=== PATIENT | male | born 1940 | race Caucasian/White ===

== ENCOUNTER → 2017-01-23 | Outpatient (CLI) | payer MEDICARE, BC ==
[~2017-01-23] MED LIST: ANDRODERM5 MG/24 HR TD; FLOMAX 0.40.4 MG/CAP PO; PAXIL20 MG PO; PRILOSEC 20MG20 MG PO; TALWIN NX PO
== END ==
LOC: MHCPAIN 13:39
DX: G89.29 Other chronic pain (principal); M47.817 Spondylosis without myelopathy or radiculopathy, lumbosacral region; M53.3 Sacrococcygeal disorders, not elsewhere classified; M41.9 Scoliosis, unspecified
CPT/HCPCS: G0463

== ENCOUNTER → 2017-02-08 | Outpatient (CLI) | payer MEDICARE, BC | LOC: MHCPAIN 13:38 | DX: M47.817 Spondylosis without myelopathy or radiculopathy, lumbosacral region (principal); M41.86 Other forms of scoliosis, lumbar region; M48.061 Spinal stenosis, lumbar region without neurogenic claudication | CPT/HCPCS: J1100; Q9967 ==

== ENCOUNTER → 2017-02-21 | Outpatient (CLI) | payer MEDICARE, BC | LOC: MHCPAIN 14:50 | DX: G89.29 Other chronic pain (principal); M47.27 Other spondylosis with radiculopathy, lumbosacral region; M41.9 Scoliosis, unspecified | CPT/HCPCS: G0463 ==

== ENCOUNTER → 2017-03-21 | Outpatient (CLI) | payer MEDICARE, BC | LOC: MHCPAIN 13:59 | DX: G89.29 Other chronic pain (principal); M47.27 Other spondylosis with radiculopathy, lumbosacral region; M53.3 Sacrococcygeal disorders, not elsewhere classified; M41.9 Scoliosis, unspecified; M48.061 Spinal stenosis, lumbar region without neurogenic claudication | CPT/HCPCS: G0463 ==

== ENCOUNTER → 2017-06-26 | Outpatient (CLI) | payer MEDICARE, BC | LOC: MHCPAIN 13:59 | DX: G89.29 Other chronic pain (principal); M47.817 Spondylosis without myelopathy or radiculopathy, lumbosacral region; M54.16 Radiculopathy, lumbar region; M53.3 Sacrococcygeal disorders, not elsewhere classified; M48.061 Spinal stenosis, lumbar region without neurogenic claudication; M41.9 Scoliosis, unspecified | CPT/HCPCS: G0463 ==

== ENCOUNTER → 2017-09-25 | Outpatient (CLI) | payer MEDICARE, BC | LOC: MHCPAIN 14:11 | DX: G89.29 Other chronic pain (principal); M47.817 Spondylosis without myelopathy or radiculopathy, lumbosacral region; M54.16 Radiculopathy, lumbar region; M53.3 Sacrococcygeal disorders, not elsewhere classified; M41.9 Scoliosis, unspecified; M48.061 Spinal stenosis, lumbar region without neurogenic claudication | CPT/HCPCS: G0463 ==

== ENCOUNTER → 2017-12-25 | Outpatient (CLI) | payer MEDICARE, BC | LOC: MHCPAIN 15:36 | DX: G89.29 Other chronic pain (principal); M47.817 Spondylosis without myelopathy or radiculopathy, lumbosacral region; M54.16 Radiculopathy, lumbar region; M53.3 Sacrococcygeal disorders, not elsewhere classified; M41.9 Scoliosis, unspecified; M48.061 Spinal stenosis, lumbar region without neurogenic claudication | CPT/HCPCS: G0463 ==

== ENCOUNTER → 2018-03-19 | Outpatient (CLI) | payer MEDICARE, BC | LOC: MHCPAIN 15:24 | DX: G89.29 Other chronic pain (principal); M47.817 Spondylosis without myelopathy or radiculopathy, lumbosacral region; M54.16 Radiculopathy, lumbar region; M53.3 Sacrococcygeal disorders, not elsewhere classified; M41.9 Scoliosis, unspecified | CPT/HCPCS: G0463 ==

== ENCOUNTER → 2018-07-16 | Outpatient (CLI) | payer MEDICARE, BC | LOC: MHCPAIN 13:56 | DX: G89.29 Other chronic pain (principal); M47.817 Spondylosis without myelopathy or radiculopathy, lumbosacral region; M54.16 Radiculopathy, lumbar region; M53.3 Sacrococcygeal disorders, not elsewhere classified; M41.9 Scoliosis, unspecified | CPT/HCPCS: G0463 ==

== ENCOUNTER → 2018-10-15 | Outpatient (CLI) | payer MEDICARE, BC | LOC: MHCPAIN 13:54 | DX: G89.29 Other chronic pain (principal); M47.817 Spondylosis without myelopathy or radiculopathy, lumbosacral region; M54.16 Radiculopathy, lumbar region; M53.3 Sacrococcygeal disorders, not elsewhere classified; M47.814 Spondylosis without myelopathy or radiculopathy, thoracic region; M41.9 Scoliosis, unspecified | CPT/HCPCS: G0463 ==

== ENCOUNTER → 2018-11-12 | Outpatient (CLI) | payer MEDICARE, BC | LOC: MHCPAIN 15:16 | DX: G89.29 Other chronic pain (principal); M47.817 Spondylosis without myelopathy or radiculopathy, lumbosacral region; M54.16 Radiculopathy, lumbar region; M53.3 Sacrococcygeal disorders, not elsewhere classified; M96.1 Postlaminectomy syndrome, not elsewhere classified | CPT/HCPCS: G0463 ==

== ENCOUNTER → 2018-12-18 | Outpatient (CLI) | payer MEDICARE, BC | LOC: MHCPAIN 14:03 | DX: G89.29 Other chronic pain (principal); M47.817 Spondylosis without myelopathy or radiculopathy, lumbosacral region; M53.3 Sacrococcygeal disorders, not elsewhere classified; M47.814 Spondylosis without myelopathy or radiculopathy, thoracic region; M48.061 Spinal stenosis, lumbar region without neurogenic claudication; M41.9 Scoliosis, unspecified | CPT/HCPCS: G0463 ==

== ENCOUNTER → 2019-03-18 | Outpatient (CLI) | payer MEDICARE, BC | LOC: MHCPAIN 14:02 | DX: G89.29 Other chronic pain (principal); M47.817 Spondylosis without myelopathy or radiculopathy, lumbosacral region; M53.3 Sacrococcygeal disorders, not elsewhere classified; M47.814 Spondylosis without myelopathy or radiculopathy, thoracic region; M48.061 Spinal stenosis, lumbar region without neurogenic claudication; M41.9 Scoliosis, unspecified | CPT/HCPCS: G0463 ==

== ENCOUNTER → 2019-07-09 | Outpatient (CLI) | payer MEDICARE, BC | LOC: MHCPAIN 15:00 | DX: M47.817 Spondylosis without myelopathy or radiculopathy, lumbosacral region (principal); M47.814 Spondylosis without myelopathy or radiculopathy, thoracic region; M48.061 Spinal stenosis, lumbar region without neurogenic claudication; M41.26 Other idiopathic scoliosis, lumbar region | CPT/HCPCS: G0463 ==

== ENCOUNTER → 2019-10-07 | Outpatient (CLI) | payer MEDICARE, BC | LOC: MHCPAIN 15:00 | DX: M53.3 Sacrococcygeal disorders, not elsewhere classified (principal); M47.817 Spondylosis without myelopathy or radiculopathy, lumbosacral region; M48.061 Spinal stenosis, lumbar region without neurogenic claudication; M54.16 Radiculopathy, lumbar region; G89.29 Other chronic pain | CPT/HCPCS: G0463 ==

== ENCOUNTER → 2020-01-06 | Outpatient (CLI) | payer MEDICARE, BC | LOC: MHCPAIN 15:00 | DX: M47.817 Spondylosis without myelopathy or radiculopathy, lumbosacral region (principal); M47.814 Spondylosis without myelopathy or radiculopathy, thoracic region; M54.5 Low back pain; M53.3 Sacrococcygeal disorders, not elsewhere classified; G89.29 Other chronic pain | CPT/HCPCS: G0463 ==

== ENCOUNTER → 2020-03-31 | Outpatient (CLI) | payer MEDICARE, BC | LOC: MHCPAIN 15:06 | DX: M47.817 Spondylosis without myelopathy or radiculopathy, lumbosacral region (principal); M53.3 Sacrococcygeal disorders, not elsewhere classified; M41.86 Other forms of scoliosis, lumbar region; G89.29 Other chronic pain | CPT/HCPCS: G0463 ==

== ENCOUNTER → 2020-05-12 | Outpatient (CLI) | payer MEDICARE, BC ==
[2020-05-12 17:43] LABS: BASO # 0.1 (0.0-0.2); BASO % 0.4 % (0.0-2.0); EOS # 0.6 (0.0-0.7); EOS % 4.2 % (0-4.0); GRAN # 13.1 (1.4-6.5); GRAN % 85.8 % (42.2-75.2); HEMOGLOBIN 10.1 g/dl (13.5-18.0); LYMPH # 0.7 (1.2-3.4); LYMPH % 4.3 % (20.0-51.0); MEAN CELL VOLUME 85 fl (80.0-100.0); MEAN CORPUSCULAR HEMOGLOBIN 26 pg (27.0-31.0); MEAN CORPUSCULAR HGB CONC 31 g/dl (33.0-37.0); MEAN PLATELET VOLUME 9.9 fl (7.4-10.4); MONO # 0.7 (0.1-0.6); MONO % 4.8 % (1.7-9.3); PLATELET COUNT 435 K/mm3 (130-400); RED BLOOD COUNT 3.83 M/mm3 (4.20-5.60); REDCELL DISTRIBUTION WIDTH-CV 16.9 % (11.5-14.5)
[2020-05-12 17:46] LABS: HEMATOCRIT 32.6 % (42.0-52.0)
== END ==
LOC: ZCOL.LAB 17:29
PROVIDERS: Family Medicine
DX: D64.9 Anemia, unspecified (principal)

== ENCOUNTER 2020-05-18 06:06 | Day surgery (SDC) | payer MEDICARE, BC ==
[2020-05-18] VITALS (9 sets, daily range): BP systolic 171–193; BP diastolic 77–96; PULSE 86–106; TEMP 97.6–98.3
[~2020-05-18] VITALS: Ht 175.3 cm; Wt 85.0 kg
--- NOTE | 2020-05-18 07:15 | NUR ---
Pt belongings include his watch, wallet, and prescription medicines as his "med list," all kept in his own belongings bag.
[2020-05-18] MEDS ORDERED: LIORESAL 1010 MG/TAB PO (07:38)
[2020-05-18] MEDS ORDERED: NALOXONE PO (07:43)
[2020-05-18] MEDS ORDERED: PENTAZOCINE PO (07:43)
[2020-05-18] MEDS ORDERED: PROTONIX 40MG T40 MG PO (07:44)
[2020-05-18] MEDS ORDERED: PROTONIX I40 MG/VIAL IV (07:44)
[2020-05-18] MEDS ORDERED: FLOMAX 0.40.4 MG/CAP PO (07:45)
[2020-05-18] MEDS ORDERED: CARAFATE 1GM1 G (07:46)
[2020-05-18] MEDS ORDERED: ZESTRIL 10MG10 MG PO (07:46)
[2020-05-18] MEDS ORDERED: CARAFATE 1GM1 G PO (07:47)
[2020-05-18] MEDS ORDERED: ALEVE 220MG220 MG PO (07:49)
--- NOTE | 2020-05-18 08:30 | NUR ---
Pt returns from procedure via cart and remains on cart per pt request. Monitors on and alarms set. Call light within reach. Report received from ALIDA Lal. Pt desires to rest before getting anything to eat or drink. Pt denies pain or nausea. Pt allowed to rest.
--- NOTE | 2020-05-18 08:50 | NUR ---
Pt continues to rest well. No complications noted.
--- NOTE | 2020-05-18 09:30 | NUR ---
Pt continues to rest.
--- NOTE | 2020-05-18 09:45 | NUR ---
Pt continues to rest without complications.
--- NOTE | 2020-05-18 10:30 | NUR ---
Pt wakes feeling rested and desiring water. Pt positioned to sit and drink while in stretcher. Pt sips water and desires to recline in stretcher again.
--- NOTE | 2020-05-18 11:00 | NUR ---
Pt states he should have taken pain medicine and muscle relaxant. Call to Dr. Beach to ask about pt receiving these meds. Dr. Beach approves a one time order for both. Pharmacy called to assist.
--- NOTE | 2020-05-18 11:30 | NUR ---
Pt asked about follow-up information on Suicide Risk questions. Pt declines this information stating that Dr. Gibbs (pt's PCP) is very aware of this and working through it with him.
--- NOTE | 2020-05-18 11:42 | NUR ---
Discharge instructions given to pt. All questions answered to his satisfaction. Handed to him are discharge instructions, a thank you card, diagnosis information, and a procedural photo sheet, as well as a follow-up appt card.
--- NOTE | 2020-05-18 11:50 | NUR ---
Pt assisted in getting dressed and taxi called.
--- NOTE | 2020-05-18 11:50 | NUR ---
Pt belongings bag still has pt's watch, wallet, and prescription medicines. Pt acknowledges this to this RN.
--- NOTE | 2020-05-18 11:52 | NUR ---
Pt transferred to Pt Entrance via wheelchair to await taxi with this RN assisting.
--- NOTE | 2020-05-18 12:03 | NUR ---
Taxi arrives, and pt assisted into taxi with this RN assisting. team truck driver agrees that he will help pt get to his house when they arrive there.
== END 2020-05-18 11:52 | disposition home or self-care (01) ==
LOC: SDCO 06:06
DX: K31.84 Gastroparesis (principal); K25.7 Chronic gastric ulcer without hemorrhage or perforation; K31.1 Adult hypertrophic pyloric stenosis; D50.0 Iron deficiency anemia secondary to blood loss (chronic); K92.1 Melena; G47.33 Obstructive sleep apnea (adult) (pediatric); I10 Essential (primary) hypertension; M19.90 Unspecified osteoarthritis, unspecified site; G89.29 Other chronic pain; M54.9 Dorsalgia, unspecified; N40.0 Benign prostatic hyperplasia without lower urinary tract symptoms; Z20.822 Contact with and (suspected) exposure to COVID-19
CPT/HCPCS: C1726; J2704; J7120

== ENCOUNTER → 2020-07-07 | Outpatient (CLI) | payer MEDICARE, BC ==
[~2020-07-07] MED LIST changes: +ALEVE 220MG220 MG PO; +CARAFATE 1GM1 G; +CARAFATE 1GM1 G PO; +IMODIUM A-D2 MG PO; +LIORESAL 1010 MG/TAB PO; +NALOXONE PO; +PENTAZOCINE PO; +PROTONIX 40MG T40 MG PO; +PROTONIX I40 MG/VIAL IV; +RESTORIL 1515 MG/CAP PO; +TUMS500 MG PO; +TYLENOL 325MG325 MG PO; +ZESTRIL 10MG10 MG PO; +ZYRTEC 10MG10 MG PO
== END ==
LOC: MHCPAIN 14:16
DX: M47.817 Spondylosis without myelopathy or radiculopathy, lumbosacral region (principal); M41.86 Other forms of scoliosis, lumbar region; M54.5 Low back pain; M53.3 Sacrococcygeal disorders, not elsewhere classified; G89.29 Other chronic pain
CPT/HCPCS: G0463

== ENCOUNTER → 2020-07-27 | Outpatient (CLI) | payer MEDICARE, BC ==
[2020-07-27 18:11] LABS: BASO % 0.3 % (0.0-2.0); EOS # 0.2 (0.0-0.7); EOS % 1.4 % (0-4.0); GRAN # 10.1 (1.4-6.5); HEMOGLOBIN 12.5 g/dl (13.5-18.0); LYMPH # 0.8 (1.2-3.4); LYMPH % 6.6 % (20.0-51.0); MEAN CELL VOLUME 88 fl (80.0-100.0); MEAN CORPUSCULAR HEMOGLOBIN 27 pg (27.0-31.0); MEAN CORPUSCULAR HGB CONC 31 g/dl (33.0-37.0); MEAN PLATELET VOLUME 10.2 fl (7.4-10.4); MONO # 0.6 (0.1-0.6); MONO % 5.4 % (1.7-9.3); PLATELET COUNT 371 K/mm3 (130-400); RED BLOOD COUNT 4.57 M/mm3 (4.20-5.60); REDCELL DISTRIBUTION WIDTH-CV 18.9 % (11.5-14.5)
[2020-07-27 18:20] LABS: ALBUMIN 3.9 gm/dL (3.5-5.0); BILIRUBIN,TOTAL 0.1 mg/dL (0.0-1.0); CALCIUM 10.8 mg/dL (8.4-10.2); CREATININE, serum 1.36 (0.66-1.25); POTASSIUM 4.9 mmol/L (3.4-5.0)
== END ==
LOC: ZCOL.LAB 18:05
PROVIDERS: Nurse Practitioner Family
DX: D62 Acute posthemorrhagic anemia (principal); R63.4 Abnormal weight loss

== ENCOUNTER → 2020-07-27 | Outpatient (CLI) | payer MEDICARE, BC | LOC: ZCOL.LAB 18:08 | DX: D62 Acute posthemorrhagic anemia (principal); R63.4 Abnormal weight loss ==

== ENCOUNTER → 2020-08-04 | Outpatient (CLI) | payer MEDICARE, BC | LOC: COL.RAD 10:09 | DX: E83.52 Hypercalcemia (principal); K40.90 Unilateral inguinal hernia, without obstruction or gangrene, not specified as recurrent; K31.89 Other diseases of stomach and duodenum; K52.832 Lymphocytic colitis | CPT/HCPCS: Q9967 ==

== ENCOUNTER → 2020-08-20 | Outpatient (CLI) | payer MEDICARE, BC | LOC: COL.RAD 12:52 | DX: K31.1 Adult hypertrophic pyloric stenosis (principal) ==

== ENCOUNTER → 2020-10-05 | Outpatient (CLI) | payer MEDICARE, BC | LOC: MHCPAIN 15:01 | DX: M47.816 Spondylosis without myelopathy or radiculopathy, lumbar region (principal); M54.5 Low back pain; M41.86 Other forms of scoliosis, lumbar region; M53.3 Sacrococcygeal disorders, not elsewhere classified | CPT/HCPCS: G0463 ==

== ENCOUNTER 2020-10-18 09:52 | Emergency (ER) | payer MEDICARE, BC ==
[~2020-10-18] VITALS: Ht 172.7 cm; Wt 81.8 kg
[~2020-10-18 09:52] MED LIST changes: -IMODIUM A-D2 MG PO; -RESTORIL 1515 MG/CAP PO; -TUMS500 MG PO; -TYLENOL 325MG325 MG PO; -ZYRTEC 10MG10 MG PO
[2020-10-18 10:43] LABS: BASO % 0.3 % (0.0-2.0); EOS # 0.1 (0.0-0.7); EOS % 0.8 % (0-4.0); GRAN # 12.2 (1.4-6.5); GRAN % 77.4 % (42.2-75.2); HEMATOCRIT 38.1 % (42.0-52.0); HEMOGLOBIN 12.2 g/dl (13.5-18.0); LYMPH # 2.5 (1.2-3.4); LYMPH % 15.9 % (20.0-51.0); MEAN CELL VOLUME 88 fl (80.0-100.0); MEAN CORPUSCULAR HEMOGLOBIN 28 pg (27.0-31.0); MEAN CORPUSCULAR HGB CONC 32 g/dl (33.0-37.0); MEAN PLATELET VOLUME 9.4 fl (7.4-10.4); MONO # 0.7 (0.1-0.6); MONO % 4.4 % (1.7-9.3); PLATELET COUNT 337 K/mm3 (130-400); RED BLOOD COUNT 4.34 M/mm3 (4.20-5.60); REDCELL DISTRIBUTION WIDTH-CV 14.9 % (11.5-14.5)
[2020-10-18 11:19] LABS: INR 1.1 (0.8-3.0); PROTHROMBIN TIME 11.7 SECONDS (9.7-12.8)
[2020-10-18 12:03] VITALS: TEMP 97.3
[2020-10-18 12:47] LABS: ALBUMIN 2.8 gm/dL (3.5-5.0); BILIRUBIN,TOTAL 0.1 mg/dL (0.0-1.0); CALCIUM 10.2 mg/dL (8.4-10.2); CREATININE, serum 1.57 (0.66-1.25); POTASSIUM 3.6 mmol/L (3.4-5.0); TOTAL PROTEIN 5.3 gm/dL (6.4-8.2)
[2020-10-18 13:08] LABS: C-REACTIVE PROTEIN 0.6 mg/dL (0.0-0.9)
[2020-10-18 13:45] VITALS: BP 105/80; PULSE 102
== END 2020-10-18 13:47 | disposition short-term general hospital (02) ==
LOC: COL.ER 09:52
PROVIDERS: Emergency Medicine; Nurse Practitioner; Surgery
DX: N17.9 Acute kidney failure, unspecified (principal); K56.609 Unspecified intestinal obstruction, unspecified as to partial versus complete obstruction; K46.0 Unspecified abdominal hernia with obstruction, without gangrene; A41.9 Sepsis, unspecified organism; R65.21 Severe sepsis with septic shock; Z20.822 Contact with and (suspected) exposure to COVID-19
CPT/HCPCS: J0744; J3010; J7030; P9016; Q9967

== ENCOUNTER 2020-12-21 07:46 | Day surgery (SDC) | payer MEDICARE, BC ==
[~2020-12-21] VITALS: Ht 172.7 cm; Wt 74.6 kg
[2020-12-21 08:23] VITALS: BP 120/60; PULSE 83; TEMP 99
[2020-12-21] MEDS ORDERED: RESTORIL 1515 MG/CAP PO (08:36)
[2020-12-21] MEDS ORDERED: TYLENOL 325MG325 MG PO (08:37)
[2020-12-21] MEDS ORDERED: TUMS500 MG PO (08:37)
[2020-12-21] MEDS ORDERED: ZYRTEC 10MG10 MG PO (08:37)
[2020-12-21] MEDS ORDERED: IMODIUM A-D2 MG PO (08:38)
[2020-12-21 10:25] VITALS: BP 125/67; PULSE 68; TEMP 97.9
--- NOTE | 2020-12-21 10:25 | NUR ---
PATIENT BROUGHT BACK TO [facility] VIA CART. AMBULATED TO CHAIR WITH ASSIST OF 2. PLACED ON MONITORS, VITAL SIGNS STABLE. REPORT RECIEVED FROM FATIMAH IRWIN, ALL QUESTIONS ANSWERED. PATIENT WAS DILATED. REQUESTING JUST WATER AT THIS TIME. CALL ADRIAN WITHIN REACH, WILL CONTINUE TO MONITOR.
[2020-12-21 10:40] VITALS: BP 130/64; PULSE 66
--- NOTE | 2020-12-21 10:40 | NUR ---
PATIENT TOLERATING WATER WITHOUT DIFFICULTY. DENIES PAIN OR NAUSEA. AWAITING TO SPEAK WITH DR. VALLEJO PRIOR TO DISCHARGE.
--- NOTE | 2020-12-21 10:55 | NUR ---
VITAL SIGNS STABLE. DR. VALLEJO AT BEDSIDE TO SPEAK WITH PATIENT IN REGARDS TO RESULTS. OFFICE TO CALL AND SCHEDULE FOLLOW UP. IV REMOVED, TOLERATED WITHOUT DIFFICULTY. CAB CALLED TO DRIVE PATIENT HOME. CHERELLE IRWIN TO ASSIST WITH GETTING DRESSED AND INTO WHEEL CHAIR.
--- NOTE | 2020-12-21 11:10 | NUR ---
PATIENT BROUGHT DOWN TO LOBBY VIA WHEEL CHAIR. PLACED IN CAB. SALVAGE ENGINEER TO TAKE PATIENT HOME. ALL BELONGINGS IN HAND.
[2020-12-21 11:55] VITALS: BP 129/61; PULSE 62
== END 2020-12-21 11:10 | disposition home or self-care (01) ==
LOC: SDCO 07:46
DX: K31.1 Adult hypertrophic pyloric stenosis (principal); K25.9 Gastric ulcer, unspecified as acute or chronic, without hemorrhage or perforation; K31.89 Other diseases of stomach and duodenum; R68.81 Early satiety; I10 Essential (primary) hypertension; G47.33 Obstructive sleep apnea (adult) (pediatric); G89.29 Other chronic pain; G62.9 Polyneuropathy, unspecified; M19.90 Unspecified osteoarthritis, unspecified site; M54.9 Dorsalgia, unspecified; D64.9 Anemia, unspecified; F41.9 Anxiety disorder, unspecified; Z20.822 Contact with and (suspected) exposure to COVID-19
CPT/HCPCS: C1769; J2704

== ENCOUNTER → 2021-01-04 | Outpatient (CLI) | payer MEDICARE, BC ==
[~2021-01-04] MED LIST changes: +IMODIUM A-D2 MG PO; +RESTORIL 1515 MG/CAP PO; +TUMS500 MG PO; +TYLENOL 325MG325 MG PO; +ZYRTEC 10MG10 MG PO
== END ==
LOC: MHCPAIN 14:55
DX: M47.816 Spondylosis without myelopathy or radiculopathy, lumbar region (principal); M41.86 Other forms of scoliosis, lumbar region; M53.3 Sacrococcygeal disorders, not elsewhere classified; M54.5 Low back pain
CPT/HCPCS: G0463

== ENCOUNTER → 2021-01-21 | Outpatient (CLI) | payer MEDICARE, BC | LOC: COL.RAD 10:00 | DX: N50.89 Other specified disorders of the male genital organs (principal) ==

== ENCOUNTER 2021-01-25 07:48 | Day surgery (SDC) | payer MEDICARE, BC ==
[~2021-01-25] VITALS: Ht 175.3 cm; Wt 74.6 kg
[2021-01-25 08:15] VITALS: BP 137/75; PULSE 87; TEMP 98.8
--- NOTE | 2021-01-25 08:15 | NUR ---
PATIENT IN WAITING ROOM PER WHEEL CHAIR AND ASSISTED BACK TO BAY 2 ACCOMPANIED BY AMB RN. PATIENT IS ALERT AND ORIENTED X 3. PATIENT IS ABLE TO AMBULATE SHORT DISTANCE. CONSENT EXPLAINED AND PATIENT SIGNED. ASSESSMENT COMPLETED. LUNGS CTA. HEART SOUNDS S1S2 AND REGULAR. BOWEL SOUNDS HEARD. PEDAL PULSES +1. NO FAMILY WITH PATIENT. PATIENT WILL NEED TAXI TO TAKE HIM HOME.
[2021-01-25 09:45] VITALS: BP 139/72; PULSE 76; TEMP 97.8
--- NOTE | 2021-01-25 09:45 | NUR ---
PATIENT BROUGHT BACK VIA CART. AMBULATED TO CHAIR WITH 2 ASSIST. PLACED ON MONITORS, VITAL SIGNS STABLE. PATIENT STATES HE HAS KNEE PAIN. NO COMPLAINTS OF DISCOMFORT TO THROAT OR [place]. REQUESTS WATER. REPORT RECIEVED FROM TONO IRWIN. WARM BLANKET PROVIDED, CALL ADRIAN WITHIN REACH. WILL CONTINUE TO MONITOR.
[2021-01-25 10:00] VITALS: BP 136/72; PULSE 77
--- NOTE | 2021-01-25 10:00 | NUR ---
TOLERATING DRINK WITHOUT DIFFICULTY. WAITING TO SPEAK WITH DR. VALLEJO AT THIS TIME.
[2021-01-25 10:15] VITALS: BP 145/72; PULSE 75
--- NOTE | 2021-01-25 10:15 | NUR ---
DR. VALLEJO AT BEDSIDE TO REVIEW RESULTS. PATIENT STATES HE FEELS READY TO GO HOME AT THIS TIME. PATIENT TO BE BROUGHT HOME BY TAXI. TAXI CALLED FOR PROCESS EXCELLENCE MANAGER.
--- NOTE | 2021-01-25 10:47 | NUR ---
DISCHARGE INSTRUCTIONS REVIEWED WITH PATIENT, ALL QUESTIONS ANSWERED. BROUGHT DOWN TO LOBBY VIA WHEEL CHAIR. TAXI AT FRONT DOOR. EXECUTIVE STEWARD ASSISTED PATIENT IN. ALL BELONGINGS IN HAND.
== END 2021-01-25 10:47 | disposition home or self-care (01) ==
LOC: SDCO 07:48
DX: K31.1 Adult hypertrophic pyloric stenosis (principal); K44.9 Diaphragmatic hernia without obstruction or gangrene; K29.30 Chronic superficial gastritis without bleeding; K29.80 Duodenitis without bleeding; K31.89 Other diseases of stomach and duodenum; I10 Essential (primary) hypertension; D64.9 Anemia, unspecified; G47.33 Obstructive sleep apnea (adult) (pediatric); G89.29 Other chronic pain; G62.9 Polyneuropathy, unspecified; K21.9 Gastro-esophageal reflux disease without esophagitis; M19.90 Unspecified osteoarthritis, unspecified site; M54.9 Dorsalgia, unspecified; Z79.899 Other long term (current) drug therapy
CPT/HCPCS: C1726; J7030

== ENCOUNTER 2021-02-05 03:13 | Emergency (ER) | payer MEDICARE, BC ==
[~2021-02-05] VITALS: Ht 180.3 cm; Wt 76.4 kg
[2021-02-05 03:40] LABS: PROTHROMBIN TIME 11.4 SECONDS (9.7-12.8)
[2021-02-05 03:42] LABS: PARTIAL THROMBOPLASTIN TIME 32.2 SECONDS (26.0-37.0)
[2021-02-05 03:53] LABS: ALANINE AMINOTRANSFERASE 13 U/L (0-55); ALBUMIN 1.8 gm/dL (3.4-4.8); ALKALINE PHOSPHATASE 35 U/L (0-750); ANION GAP 5 mmol/L (7-16); AST,SGOT 15 U/L (5-34); BLOOD UREA NITROGEN 25 mg/dL (8-26); CALCIUM 6.8 mg/dL (8.4-10.2); CARBON DIOXIDE 18 mmol/L (23-31); CHLORIDE 118 mmol/L (98-107); CREATININE, serum 1.06 mg/dL (0.72-1.25); GLUCOSE 107 mg/dL (70-99); POTASSIUM 3.9 mmol/L (3.5-4.5); SODIUM 141 mmol/L (136-145); TOTAL PROTEIN 3.5 gm/dL (6.2-8.1)
[2021-02-05 03:54] VITALS: BP 182/131; PULSE 133
[2021-02-05 03:54] LABS: BILIRUBIN,TOTAL < 0.1 mg/dL (0.2-1.2)
[2021-02-05 04:09] LABS: HEMATOCRIT 22.3 % (42.0-52.0); MEAN CELL VOLUME 91 fl (80.0-100.0); MEAN CORPUSCULAR HEMOGLOBIN 28 pg (27.0-31.0); MEAN CORPUSCULAR HGB CONC 31 g/dl (33.0-37.0); MEAN PLATELET VOLUME 10.2 fl (7.4-10.4); PLATELET COUNT 156 K/mm3 (130-400); RED BLOOD COUNT 2.44 M/mm3 (4.20-5.60); REDCELL DISTRIBUTION WIDTH-CV 17.1 % (11.5-14.5)
[2021-02-05 04:14] LABS: HEMOGLOBIN 6.9 g/dl (13.5-18.0)
[2021-02-05 04:18] LABS: EOSINOPHIL 4 % (0-4); LYMPHOCYTE 31 % (20.0-51.0); NEUTROPHILS 63 % (42.0-75.2); PLATELET ESTIMATE NORMAL (NORMAL)
[2021-02-05 04:19] LABS: ANISOCYTOSIS 1+; HYPOCHROMIA 3+
== END 2021-02-05 03:54 | disposition expired ==
LOC: COL.ER → EDBD 03:14 → COL.ER 03:54
PROVIDERS: Emergency Medicine
DX: I46.9 Cardiac arrest, cause unspecified (principal); I21.3 ST elevation (STEMI) myocardial infarction of unspecified site
CPT/HCPCS: J0171; J0461; J3010; J3101; J7030